=== PATIENT | female | born 1975 | race Two or more races ===

== ENCOUNTER 2016-07-23 13:07 | Emergency (ER) | payer OTHER ==
--- NOTE | 2016-07-23 14:04 | EDDOCDS ---
Physician Documentation [facility] Name: Valentine Ortiz Age: 41 yrs Sex: Female : 1975 Arrival Date: 07/23/2016 Time: 13:07 Bed TR3 Private MD: JACKIE Blood Disposition: 07/23/16 13:51 Discharged to Home/Self Care. Impression: Cutaneous abscess of groin - right-sided. - Condition is Stable. - Discharge Instructions: Abscess. - Prescriptions for Clindamycin HCl 300 mg Oral Capsule - take 1 capsule by ORAL route every 6 hours; 40 capsule. [place] 5- 325 mg Oral Tablet - take 1 tablet by ORAL route every 6 hours As needed MDD: 4 tabs; 15 tablet. - Medication Reconciliation, Local Pharmacy Hours form. - Follow up: Emergency Department; When: As needed; Reason: Worsening of conditions. Follow up: JACKIE Blood; When: 2 - 3 days; Reason: Wound/Symptom Recheck, Recheck today's complaints, Continuance of care. - Problem is new. - Symptoms are unchanged. - Notes: USE WARM PACKS (A WARM WET WASH CLOTH) TO THIS AREA A FEW TIMES A DAY FOR 10-15 MINUTES AT A TIME OVER THE NEXT FEW DAYS. TAKE THE ANTIBIOTIC DIRECTED UNTIL IT IS GONE. RETURN TO THE ER WITH ANY WORSENING SYMPTOMS. Historical: - Allergies: no known allergies; - Home Meds: 1. hydroxyzine HCl 25 mg Oral tab prn - PMHx: Anxiety; - PSHx: Lumpectomy- Right; cysts removed from uterus; - Social history: Smoking status: Patient uses tobacco products, current every day smoker. No barriers to communication noted, The patient speaks fluent Northern Irish. - : The pt / caregiver states he / she is not on anticoagulants. Home medication list is obtained from the patient. - Exposure Risk Screening:: None identified. 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 4 in. (162.56 cm) (R); 13:09 Body Mass Index 27.46 (72.57 kg, 162.56 cm) dd6 MDM: 13:51 Financial registration complete. Signatures: Marichuy Dennison, Reg Reg Valentine George, ROZ RN Daksha Peña PA-C PA-C dt4 MTDD
--- NOTE | 2016-07-23 14:04 | EDDOCDS ---
Nurse's Notes [facility] Name: Valentine Ortiz Age: 41 yrs Sex: Female : 1975 Arrival Date: 07/23/2016 Time: 13:07 Bed TR3 Private MD: [place] [facility] [place] Cutaneous abscess of [id number]-[id number] Presentation: 07/23 13:10 Presenting complaint: Patient states: noted lump to right groin months ago but has jjr increased in size and pain over past few days. Adult Sepsis Screening: The patient does not have new or worsening altered mentation. Patient's respiratory rate is less than 22. Systolic blood pressure is greater than 100. Patient has a qSOFA score of 0- Negative Sepsis Screen. Suicide/Homicide risk assessment- the patient denies having any suicidal and/or homicidal ideations and does not present with any other emotional, behavioral or mental health complaints. Status: The patient is a dependent. Transition of care: patient was not received from another setting of care. 13:10 Method Of Arrival: Walkin/Carried/Asstd jjr 13:10 Acuity: WILY Level 3 jjr Triage Assessment: 13:12 General: Appears in no apparent distress. Pain: Location: groin. HIV screening NA for jjr this visit Offered previously. 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 hydroxyzine HCl 25 mg Oral tab prn - PMHx: Anxiety; - PSHx: Lumpectomy- Right; cysts removed from uterus; - Social history: Smoking status: Patient uses tobacco products, current every day smoker. No barriers to communication noted, The patient speaks fluent Kyrgyz. - : The pt / caregiver states he / she is not on anticoagulants. Home medication list is obtained from the patient. - Exposure Risk Screening:: None identified. Screenin:02 Screening information is obtained from the patient. Fall risk: No risks identified. jjr Assistance ADL's: requires no assistance with activities of daily living. Abuse/DV Screen: The patient / caregiver reports he/she is: not in a situation that causes fear, pain or injury. Nutritional screening: No deficits noted. Advance Directives: There is no active DNR order. home support is adequate. Assessment: 14:02 General: Appears uncomfortable, well nourished, well groomed, Behavior is appropriate jjr for age. Pain: Location: groin and right femoral area. Vital Signs: 13:09 BP 153 / 94; Pulse 121; Resp 18 S; Temp 97.0; Pulse Ox 97% on R/A; Weight 72.57 kg (R); dd6 Height 5 ft. 4 in. (162.56 cm) (R); 13:09 Body Mass Index 27.46 (72.57 kg, 162.56 cm) dd6 Vitals: 13:09 Log In Time: July 23, 2016 at 13:07. dd6 ED Course: 13:09 Patient visited by Renan Pimentel PCA. dd6 13:09 JACKIE Blood is Private Physician. dd6 13:09 Patient moved to Waiting dd6 13:10 Patient moved to Pre RCE dd6 13:11 Triage Initiated jjr 13:13 Patient moved to Triage 2 jjr 13:27 Daksha Bruno PA-C is PHCP. dt4 13:27 Paloma Mendoza MD is Attending Physician. dt4 13:27 Patient visited by Daksha Bruno PA-C. dt4 13:51 JACKIE Blood is Referral Physician. dt4 14:02 Patient moved to TR3 jjr 14:02 The patient / caregiver is instructed regarding the plan of care and ED course. jjr 14:03 No IV's were initiated during this patient's visit. No procedures done that require jjr assistance. Order Results: There are currently no results for this order. Outcome: 13:51 Discharge ordered by Provider. dt4 14:03 Discharge Assessment: patient administered narcotics - no. The following High Risk jjr Discharge criteria are identified: None. Discharged to home ambulatory, with family. Condition: stable. Discharge instructions given to patient, Instructed on discharge instructions, follow up and referral plans. medication usage, Use of warm compresses to the affected area, Demonstrated understanding of instructions, medications, Prescriptions given X 2. No special radiology studies were completed. Property sent home with patient. 14:03 Patient left the ED. jjr Signatures: Valentine Khoury RN RN jjr Renan Pimentel PCA TELEPHONE ORDER CLERK dd6 Kiana, Daksha, PA-C PA-C dt4 MTDD
--- NOTE | 2016-07-25 15:04 | EDDOCDS ---
Physician Documentation [facility] Name: Valentine Ortiz Age: 41 yrs Sex: Female : 1975 Arrival Date: 07/23/2016 Time: 13:07 Bed TR3 Private MD: JACKIE Blood Disposition: 07/23/16 13:51 Discharged to Home/Self Care. Impression: Cutaneous abscess of groin - right-sided. - Condition is Stable. - Discharge Instructions: Abscess. - Prescriptions for Clindamycin HCl 300 mg Oral Capsule - take 1 capsule by ORAL route every 6 hours; 40 capsule. [place] 5- 325 mg Oral Tablet - take 1 tablet by ORAL route every 6 hours As needed MDD: 4 tabs; 15 tablet. - Medication Reconciliation, Local Pharmacy Hours form. - Follow up: Emergency Department; When: As needed; Reason: Worsening of conditions. Follow up: JACKIE Blood; When: 2 - 3 days; Reason: Wound/Symptom Recheck, Recheck today's complaints, Continuance of care. - Problem is new. - Symptoms are unchanged. - Notes: USE WARM PACKS (A WARM WET WASH CLOTH) TO THIS AREA A FEW TIMES A DAY FOR 10-15 MINUTES AT A TIME OVER THE NEXT FEW DAYS. TAKE THE ANTIBIOTIC DIRECTED UNTIL IT IS GONE. RETURN TO THE ER WITH ANY WORSENING SYMPTOMS. Historical: - Allergies: no known allergies; - Home Meds: 1. hydroxyzine HCl 25 mg Oral tab prn - PMHx: Anxiety; - PSHx: Lumpectomy- Right; cysts removed from uterus; - Social history: Smoking status: Patient uses tobacco products, current every day smoker. No barriers to communication noted, The patient speaks fluent Guamanian. - : The pt / caregiver states he / she is not on anticoagulants. Home medication list is obtained from the patient. - Exposure Risk Screening:: None identified. 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 4 in. (162.56 cm) (R); 13:09 Body Mass Index 27.46 (72.57 kg, 162.56 cm) dd6 MDM: 13:51 Financial registration complete. lg 14:30 [facility] [place] was scanned into [employer] and attached to record. lg 16:57 T-Sheet-- Draft Copy was scanned into [employer] and attached to record. klr Signatures: Marichuy Dennison, Valentine Goode lg, RN RN jjr Daksha Bruno PA-C PA-C dt4 Redder, Kathie klraulito The chart was reviewed and I authenticate all verbal orders and agree with the evaluation and treatment provided.Attachments: 14:30 [facility] [place] lg 16:57 T-Sheet-- Draft Copy klr Chart Complete MTDD
--- NOTE | 2016-07-25 15:04 | EDDOCDS ---
Nurse's Notes [facility] Name: Valentine Ortiz Age: 41 yrs Sex: Female : 1975 Arrival Date: 07/23/2016 Time: 13:07 Bed TR3 Private MD: Jeremi [facility] [place] Diagnosis: Cutaneous abscess of [id number]-tccfr-irkgn Presentation: 07/23 13:10 Presenting complaint: Patient states: noted lump to right groin months ago but has jjr increased in size and pain over past few days. Adult Sepsis Screening: The patient does not have new or worsening altered mentation. Patient's respiratory rate is less than 22. Systolic blood pressure is greater than 100. Patient has a qSOFA score of 0- Negative Sepsis Screen. Suicide/Homicide risk assessment- the patient denies having any suicidal and/or homicidal ideations and does not present with any other emotional, behavioral or mental health complaints. Status: The patient is a dependent. Transition of care: patient was not received from another setting of care. 13:10 Method Of Arrival: Walkin/Carried/Asstd jjr 13:10 Acuity: WILY Level 3 jjr Triage Assessment: 13:12 General: Appears in no apparent distress. Pain: Location: groin. HIV screening NA for jjr this visit Offered previously. 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 hydroxyzine HCl 25 mg Oral tab prn - PMHx: Anxiety; - PSHx: Lumpectomy- Right; cysts removed from uterus; - Social history: Smoking status: Patient uses tobacco products, current every day smoker. No barriers to communication noted, The patient speaks fluent Swiss. - : The pt / caregiver states he / she is not on anticoagulants. Home medication list is obtained from the patient. - Exposure Risk Screening:: None identified. Screenin:02 Screening information is obtained from the patient. Fall risk: No risks identified. jjr Assistance ADL's: requires no assistance with activities of daily living. Abuse/DV Screen: The patient / caregiver reports he/she is: not in a situation that causes fear, pain or injury. Nutritional screening: No deficits noted. Advance Directives: There is no active DNR order. home support is adequate. Assessment: 14:02 General: Appears uncomfortable, well nourished, well groomed, Behavior is appropriate jjr for age. Pain: Location: groin and right femoral area. Vital Signs: 13:09 BP 153 / 94; Pulse 121; Resp 18 S; Temp 97.0; Pulse Ox 97% on R/A; Weight 72.57 kg (R); dd6 Height 5 ft. 4 in. (162.56 cm) (R); 13:09 Body Mass Index 27.46 (72.57 kg, 162.56 cm) dd6 Vitals: 13:09 Log In Time: July 23, 2016 at 13:07. dd6 ED Course: 13:09 Patient visited by Renan Pimentel PCA. dd6 13:09 Jeremi [facility] [place] is Private Physician. dd6 13:09 Patient moved to Waiting dd6 13:10 Patient moved to Pre RCE dd6 13:11 Triage Initiated jjr 13:13 Patient moved to Triage 2 jjr 13:27 Daksha Bruno PA-C is PHCP. dt4 13:27 Paloma Mendoza MD is Attending Physician. dt4 13:27 Patient visited by Daksha Bruno PA-C. dt4 13:51 JACKIE Blood is Referral Physician. dt4 14:02 Patient moved to TR3 jjr 14:02 The patient / caregiver is instructed regarding the plan of care and ED course. jjr 14:03 No IV's were initiated during this patient's visit. No procedures done that require jjr assistance. 14:30 [facility] [place] Agreement was scanned into [employer] and attached to record. lg 16:57 T-Sheet-- Draft Copy was scanned into [employer] and attached to record. klr Order Results: There are currently no results for this order. Outcome: 13:51 Discharge ordered by Provider. dt4 14:03 Discharge Assessment: patient administered narcotics - no. The following High Risk jjr Discharge criteria are identified: None. Discharged to home ambulatory, with family. Condition: stable. Discharge instructions given to patient, Instructed on discharge instructions, follow up and referral plans. medication usage, Use of warm compresses to the affected area, Demonstrated understanding of instructions, medications, Prescriptions given X 2. No special radiology studies were completed. Property sent home with patient. 14:03 Patient left the ED. jjr Signatures: Marichuy Dennison, Valentine Goode lg, ROZ RN jjr Renan Pimentel, CRITICAL CARE PARAMEDIC CRITICAL CARE PARAMEDIC dd6 Daksha Bruno PA-C PA-C dt4 Wanda Godfrey Chart Complete MTDD
--- NOTE | 2016-07-25 15:04 | EDDOCDS ---
Physician Documentation [facility] Name: Valentine Ortiz Age: 41 yrs Sex: Female : 1975 Arrival Date: 07/23/2016 Time: 13:07 Bed TR3 Private MD: JACKIE Blood Disposition: 07/23/16 13:51 Discharged to Home/Self Care. Impression: Cutaneous abscess of groin - right-sided. - Condition is Stable. - Discharge Instructions: Abscess. - Prescriptions for Clindamycin HCl 300 mg Oral Capsule - take 1 capsule by ORAL route every 6 hours; 40 capsule. [place] 5- 325 mg Oral Tablet - take 1 tablet by ORAL route every 6 hours As needed MDD: 4 tabs; 15 tablet. - Medication Reconciliation, Local Pharmacy Hours form. - Follow up: Emergency Department; When: As needed; Reason: Worsening of conditions. Follow up: JACKIE Blood; When: 2 - 3 days; Reason: Wound/Symptom Recheck, Recheck today's complaints, Continuance of care. - Problem is new. - Symptoms are unchanged. - Notes: USE WARM PACKS (A WARM WET WASH CLOTH) TO THIS AREA A FEW TIMES A DAY FOR 10-15 MINUTES AT A TIME OVER THE NEXT FEW DAYS. TAKE THE ANTIBIOTIC DIRECTED UNTIL IT IS GONE. RETURN TO THE ER WITH ANY WORSENING SYMPTOMS. Historical: - Allergies: no known allergies; - Home Meds: 1. hydroxyzine HCl 25 mg Oral tab prn - PMHx: Anxiety; - PSHx: Lumpectomy- Right; cysts removed from uterus; - Social history: Smoking status: Patient uses tobacco products, current every day smoker. No barriers to communication noted, The patient speaks fluent Ghanaian. - : The pt / caregiver states he / she is not on anticoagulants. Home medication list is obtained from the patient. - Exposure Risk Screening:: None identified. 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 4 in. (162.56 cm) (R); 13:09 Body Mass Index 27.46 (72.57 kg, 162.56 cm) dd6 MDM: 13:51 Financial registration complete. lg 14:30 [facility] [place] Payment Agreement was scanned into [employer] and attached to record. lg 16:57 T-Sheet-- Draft Copy was scanned into [employer] and attached to record. klr Signatures: Marichuy Dennison, Valentine Goode lg, RN RN jjr Daksha Bruno PA-C PA-C dt4 Redder, Kathie klraulito The chart was reviewed and I authenticate all verbal orders and agree with the evaluation and treatment provided.Attachments: 14:30 [facility] [place] Payment Agreement lg 16:57 T-Sheet-- Draft Copy klr Chart Complete MTDD
== END 2016-07-23 14:03 | disposition home or self-care (01) ==
LOC: M ED 13:07
DX: L02.214 Cutaneous abscess of groin (principal); F41.9 Anxiety disorder, unspecified; F17.200 Nicotine dependence, unspecified, uncomplicated

== ENCOUNTER → 2020-09-25 | Outpatient (CLI) | payer OTHER ==
--- NOTE | 2020-09-25 15:02 | REP ---
INDICATION: SWELLING LT LEG. COMPARISON: None TECHNIQUE: Multiple ultrasonographic images of the deep venous structures of the left thigh were obtained from the level of the common femoral vein to the popliteal vein in the longitudinal and transverse scan planes along with Doppler interrogation and color flow Doppler imaging. FINDINGS: There is no abnormal echogenic material seen within any of the visualized deep venous structures that would suggest acute thrombosis. Coaptation is unremarkable throughout. Doppler interrogation shows an expected response to respiratory variability and augmentation. The color flow Doppler images show what appears to be a normal vascular pattern throughout. IMPRESSION: There is no ultrasonographic evidence of deep venous thrombosis involving any of the visualized deep venous structures of the left thigh as described above. Accredited by the [employer] in Vascular Peripheral Ultrasound. <Electronically signed by Kike Hernandes > 09/25/20 [id number]
== END ==
LOC: M RAD 14:33
PROVIDERS: ATTEND Physician Assistant
DX: R22.41 Localized swelling, mass and lump, right lower limb (principal)